=== PATIENT | female | born 1995 | race Caucasian/White ===

== ENCOUNTER 2020-05-05 13:07 | Emergency (ER) | payer OTHER, SELFPAY ==
--- NOTE | ~2020-05-05 | XR_ITS ---
EXAMINATION: XR elbow RT min 3V DATE: 05/05/2020 13:29 INDICATION: Right elbow injury. TECHNIQUE: 4 views of right elbow were obtained. COMPARISON: None. FINDINGS: Bone alignment is normal. There is a nondisplaced fracture of radial head. Joint spaces are normal. There is an elbow joint effusion. IMPRESSION: 1. Nondisplaced fracture of radial head. 2. Elbow joint effusion. Reviewed, dictated and finalized at location B.
[2020-05-05 13:19] VITALS: BP 147/89; PULSE 69; RESP 20; TEMP 36.9; O2SAT 100
--- NOTE | 2020-05-05 13:22 | ED.UPPEXIN ---
HPI - Extremity Injury (Upper) General Chief Complaint: Extremity Injury, Upper Stated Complaint: R/elbow pain Time Seen by Provider: 05/05/20 13:14 Source: patient Mode of arrival: ambulatory Limitations: no limitations History of Present Illness HPI narrative: 25-year-old female presents to urgent care with complaints of pain and swelling to right elbow for the past 3 days. Patient ports that she was hiking in [place] when she slipped falling on a rock on her right elbow. Patient reports pain and swelling to her right elbow since. Patient denies bruising, numbness or tingling. Patient has been applying ice and taking [id number] pain medications with little relief. Patient denies previous injury to her elbow. Patient denies hitting her head or loss of consciousness MD complaint: injury to: right Onset (ago): day(s) (3) Other Extremity Injury: Right: elbow Other injuries: none Place: outdoors Relieving factors: none Exacerbating factors: movement of extremity Context: fall Associated symptoms: denies other symptoms Treatments prior to arrival: cold therapy and NSAIDS Related Data Allergies Allergy/AdvReac Type Severity Reaction Status Date / Time hydrocodone Allergy Vomiting Verified 05/05/20 13:25 red dye Allergy Rash Verified 05/05/20 13:23 Review of Systems Constitutional: Constitutional: Denies chills, Denies fatigue, Denies fever(s) and Denies weakness ENT: Denies vertigo and Denies dizziness Cardiovascular: Cardiovascular: Denies chest pain, Denies rapid heart rate, Denies radiating jaw, neck or arm pain and Denies slow heart rate Respiratory: Respiratory: Denies cough and Denies dyspnea Gastrointestinal: Gastrointestinal: Denies abdominal pain, Denies diarrhea, Denies nausea and Denies vomiting Musculoskeletal: Musculoskeletal: Reports as per HPI Comments: right elbow pain and swelling Integumentary/Breasts: Skin/Breast: Denies pruritus, Denies erythema, Denies rash and Denies skin ulcer Neurologic: Denies vertigo, Denies focal weakness and Denies weakness PMFSH Social History Social History (Updated 05/05/20 @ 13:25 by Юлия Nieves APRN) Smoking status: Never smoker Gender identity (if verbalized by the patient): Female Exam Const: General: healthy appearing, no acute distress and alert Nutritional Appearance: well nourished Orientation/consciousness: patient oriented x3 Neck: Neck: normal visual inspection Resp: Effort & Inspection: normal respiratory effort, not labored and not tachypneic Auscultation: clear to auscultation bilaterally, no crackles and no wheezes Cardio: Rate: regular rate, not bradycardic and not tachycardic Rhythm: regular rhythm Skin: General skin exam: normal color, no jaundice and no pallor Rashes: no rashes Wounds: no wounds noted Neuro: General: patient oriented x3, moves all extremities and CN's II-XI intact bilaterally Extrem: General: no clubbing, cyanosis or edema Other: Pain noted to lateral aspect of right elbow upon palpation. There is mild swelling noted to lateral aspect of right elbow. There is no bruising or decreased range of motion noted. Patient does have increased pain upon range of motion. Psych: Appearance: grossly normal Mental Status: mental status grossly normal Affect: normal affect Attitude: cooperative Thought content: Yes Normal thought content present Course Vital Signs Vital signs: Vital Signs Temperature 36.9 C 05/05/20 13:19 Pulse Rate 69 05/05/20 13:19 Respiratory Rate 05/05/20 13:19 Blood Pressure 147/89 H 05/05/20 13:19 Pulse Oximetry 100 05/05/20 13:19 Temperature 36.9 C 05/05/20 13:19 Pulse Rate 05/05/20 13:19 Respiratory Rate 05/05/20 13:19 Blood Pressure 147/89 H 05/05/20 13:19 Pulse Oximetry 100 05/05/20 13:19 MDM - Extremity Injury (Upper) MDM Narrative Medical decision making narrative: right elbow xray results --fracture right radial head discussed
== END 2020-05-05 14:25 | disposition home or self-care (01) ==
PROVIDERS: Emergency Provider Nurse Practitioner Family
DX: S52.124A Nondisplaced fracture of head of right radius, initial encounter for closed fracture (principal); W01.198A Fall on same level from slipping, tripping and stumbling with subsequent striking against other object, initial encounter
CPT/HCPCS: 29105; 73080; 99204; A4565; G0463

== ENCOUNTER 2020-09-11 10:38 | Emergency (ER) | payer OTHER, SELFPAY ==
[2020-09-11 11:07] VITALS: BP 146/93; PULSE 81; RESP 16; TEMP 36.6; O2SAT 100
--- NOTE | 2020-09-11 11:10 | ED.GENADULT ---
HPI - General Adult General Chief complaint: Urogenital-Female Stated complaint: exposure to std Time Seen by Provider: 09/11/20 11:20 Source: patient and RN notes reviewed Mode of arrival: ambulatory Limitations: no limitations History of Present Illness HPI narrative: 25-year-old female who presents to [facility] care with complaints of 3 day duration of yellowish to green vaginal drainage noted. Patient states that she has had 2 sexual partners in the past 2 weeks and does not always use condoms. Patient states that she is not on control but did take a test at home 3 days ago that was negative, states that last menses 20 days ago. Patient denies any burning or pain with urination, no urinary frequency or urgency.denies any abdominal pain or suprapubic pressure.Patient states that a week ago she thought she had a yeast infection so she took Diflucan tablet with those symptoms resolving prior to yellowish drainage starting. MD complaint: possible STD Onset (ago): day(s) (3) Quality: other Relieving factors: none Treatments prior to arrival: none Related Data Home Medications Medication Instructions Recorded Confirmed No Home Medications 09/11/20 09/11/20 Allergies Allergy/AdvReac Type Severity Reaction Status Date / Time hydrocodone Allergy Unknown Verified 08/08/17 13:33 red dye Allergy Unknown Verified 08/08/17 13:33 Review of Systems Review of Systems: Narrative: CONSTITUTIONAL: Denies fever, chills, or sweats. EYES: Denies visual changes, redness, or discharge. ENT: Denies rhinorrhea, congestion, sore throat, or otalgia. CARDIOVASCULAR: Denies chest pain, palpitations, or edema. RESPIRATORY: Denies cough or dyspnea. GASTROINTESTINAL: Denies abdominal pain, nausea, vomiting, or diarrhea. GENITOURINARY: Denies dysuria or hematuria.positive for intermittent yellow to greenish colored discharge for the past 3 days, no odor or itching. SKIN: Denies rash or itching. MUSCULOSKELETAL: Denies back pain, joint pain, or myalgia. NEUROLOGIC: Denies headache, numbness, or weakness. PSYCHIATRIC: Denies anxiety or depression. All systems reviewed & are unremarkable except as noted in HPI and below PMFSH Past Medical History Medical History (Updated 09/11/20 @ 12:30 by Nichole Earl NP) No significant past medical history Surgical History Surgical History (Updated 09/11/20 @ 12:30 by Nichole Earl NP) Hx of tonsillectomy Family History Family History (Updated 09/11/20 @ 12:31 by Nichole Earl NP) Grandparent Hypertension Heart disease Social History Social History (Updated 09/11/20 @ 12:30 by Nichole Earl NP) Smoking status: Never smoker Alcohol intake: current Substance use: never Living arrangements: with family Gender identity (if verbalized by the patient): Female Comments At time of signature, agree with nursing past medical, surgical, social and family history. There is no relevant family history pertinent to the presenting complaint Exam Narrative: Exam Narrative: GENERAL: Well-appearing, well-nourished, and in no acute distress. HEAD: Normocephalic, atraumatic. EYES: PERRLA and EOMI. ENT: Nares clear, no rhinorrhea or epistaxis. Mucous membranes moist. NECK: Supple.no lymphadenopathy CHEST: Clear to auscultation. No respiratory distress.SAO2 100% on room air HEART: Regular rate and rhythm. No murmur heard. Normal peripheral pulses. ABDOMEN: Soft, nontender, nondistended, normal active bowel sounds.no abdominal or suprapubic discomfort, denies any vaginal pain positive for vaginal discharge yellow to green with no odor or itching. EXTREMITIES: Normal range of motion. No edema. SKIN: Warm, dry, no rash. NEURO: No focal deficits. Alert and oriented x3. Course Vital Signs Vital signs: Vital Signs Temperature 36.6 C 09/11/20 11:07 Pulse Rate 81 09/11/20 11:07 Respiratory Rate 16 09/11/20 11:07 Blood Pressure 146/93 H 09/11/20 11:07 Pulse Ox
[2020-09-11] MEDS: LIDOCAINE HCL 1% LOCAL INJ 20 ML VIAL IM (11:52)
[2020-09-11] MEDS: cefTRIAXone 250 MG VIAL IM (11:52)
[2020-09-11] MEDS: metroNIDAZOLE 250 MG TABLET 2000 MG PO (12:04)
[2020-09-11] MEDS: AZITHROMYCIN 250 MG TABLET 1000 MG PO (12:16)
== END 2020-09-11 12:24 | disposition home or self-care (01) ==
PROVIDERS: Emergency Provider Registered Nurse
DX: A64 Unspecified sexually transmitted disease (principal)
CPT/HCPCS: 81003; 87491; 87591; 87661; 96372; 99203; A9270; G0463; J0696

== ENCOUNTER 2021-06-06 10:30 | Emergency (ER) | payer OTHER, SELFPAY ==
[2021-06-06 10:49] VITALS: BP 140/93; PULSE 107; RESP 18; TEMP 36.6; O2SAT 98
[2021-06-06 11:04] VITALS: BP 140/93; PULSE 107; RESP 18; TEMP 36.6; O2SAT 98
--- NOTE | 2021-06-06 11:19 | ED.URI ---
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 Patient notes associated chills, and sneezing; no fever, rash, diarrhea. Patient reports after her first vaccination she had Covid and her second vaccine was this week with negative PCR testing; no loss of taste/smell, CP, rash, S OB Related Data Allergies Allergy/AdvReac Type Severity Reaction Status Date / Time hydrocodone Allergy Intermediate Vomiting Verified 06/06/21 12:59 red dye Allergy Intermediate Hives Verified 06/06/21 12:59 Review of Systems Review of Systems: The patient has been informed that they may have pre-hypertension or Hypertension based on a BP reading in the department. I recommend that the patient call the primary care provider listed on their discharge instructions or a physician of their choice this week to arrange follow up for further evaluation of possible pre-hypertension or Hypertension General/Constitutional: No weight loss,fever Eyes: N0: Redness,discharge Ears/Nose/Throat: No: Epistaxis,ear discharge Respiratory: Denies: Hemoptysis Gastrointestinal: No Vomiting, Bleeding-rectal Skin: No Lumps, eruption Neurologic: No Focal Weakness,Sz Hematologic: Denies: Petechiae/Purpura Psychiatric: No: Suicida ideationl All Other Systems: Reviewed and Negative PMFSH Social History Social History (Updated 05/05/20 @ 13:25 by Юлия Nieves APRN) Smoking status: Never smoker Gender identity (if verbalized by the patient): Female Comments At time of signature, agree with nursing past medical, surgical, social and family history. There is no relevant family history pertinent to the presenting complaint Exam Narrative: General Appearance: Overweight/well nourished,, Conjunctiva clear Ears: Auditory canal normal, TM normal Nose: Rhinorrhea, Mucousal erythema Mouth/Throat: MM moist, Uvula midline, Pharyngeal erythema Neck: Supple, No adenopathy Respiratory: No respiratory distress, Breath sounds equal, Clear to auscultation Cardiovascular: RRR, No JVD Musculoskeletal: Non tender, Normal strength Skin: Warm, Dry Neurological: A&O x3, Normal affect Course Vital Signs Vital signs: Vital Signs Temperature 97.9 F 06/06/21 10:49 Pulse Rate 107 H 06/06/21 10:49 Respiratory Rate 18 06/06/21 10:49 Blood Pressure 140/93 H 06/06/21 10:49 Pulse Oximetry 98 06/06/21 10:49 Temperature 97.9 F 06/06/21 11:04 Pulse Rate 107 H 06/06/21 11:04 Respiratory Rate 18 06/06/21 11:04 Blood Pressure 140/93 H 06/06/21 11:04 Pulse Oximetry 98 06/06/21 11:04 MDM - URI/Sore Throat Lab Data Labs: Lab Results 06/06/21 Range/Units 11:30 POC SARS CoV-2 Ag Negative (Negative) Discharge Plan Discharge Clinical Impression: Cough Patient Disposition: Home, Self-Care Condition: Stable Instructions: Acute Bronchitis (ED) Prescriptions: New azithromycin 250 mg tablet See Rx Instructions .ROUTE .COMPLEX Qty: 6 RF: 0 codeine-guaifenesin 10-100 mg/5 mL liquid 7.5 ml PO Q6H PRN (Reason: cough) Qty: 118 RF: 0 azelastine 137 mcg (0.1 %) aerosol,spray 137 mcg NASAL Q12H Qty: 30 RF: 0 benzonatate [Tessalon Perles] 100 mg capsule 100 mg PO TID Qty: 20 RF: 1 Other Ambulatory Orders: SARS-CoV-2 RNA, Qual RT-PCR (Routine) Location: Determined by Patient Ordered By: Ethan Roberson Follow-up/Referrals: PHYSICIAN,DIE CASTER [Primary Care Provider] - Stand Alone Forms: Work/School Release IP
== END 2021-06-06 11:45 | disposition home or self-care (01) ==
PROVIDERS: Emergency Provider Emergency Medicine
DX: R05 Cough (principal); Z20.822 Contact with and (suspected) exposure to COVID-19
CPT/HCPCS: 87426; 99213; C9803; G0463

== ENCOUNTER → 2021-06-08 08:11 | Outpatient (CLI) | payer OTHER, SELFPAY ==
[2021-06-08 17:28] LABS: SARS-CoV-2 RNA PCR Negative
== END ==
PROVIDERS: Visit Provider Emergency Medicine
DX: J40 Bronchitis, not specified as acute or chronic (principal); Z20.822 Contact with and (suspected) exposure to COVID-19
CPT/HCPCS: C9803; U0003; U0005

== ENCOUNTER 2021-12-03 17:56 | Emergency (ER) | payer OTHER, SELFPAY ==
[2021-12-03 18:10] VITALS: BP 141/95; PULSE 82; RESP 18; TEMP 36.7; O2SAT 99
--- NOTE | 2021-12-03 18:18 | ED.URI ---
HPI - URI/Sore Throat General Chief Complaint: Upper Respiratory Infection Stated Complaint: cold/flu symptoms and lymph nodes are swollen Time Seen by Provider: 12/03/21 18:15 Source: patient Mode of arrival: ambulatory Limitations: no limitations History of Present Illness HPI Narrative: Elisha Hickey is a 26 yo female with PMH of hypertension and depression, [facility] of [facility] symptoms, swollen lymph nodes, low-grade fever for 2 days. No nausea vomiting diarrhea, no complaints of difficulty with swallowing Related Data Home Medications Medication Instructions Recorded Confirmed amlodipine [Norvasc] 5 mg PO DAILY 12/03/21 12/03/21 duloxetine [Cymbalta] 20 mg PO DAILY 12/03/21 12/03/21 Allergies Allergy/AdvReac Type Severity Reaction Status Date / Time hydrocodone Allergy Unknown Verified 12/03/21 18:16 red dye Allergy Unknown Verified 12/03/21 18:16 Review of Systems Review of Systems: CONSTITUTIONAL: has fever, chills, sweats. EYES: Denies visual changes, redness, discharge. ENT: Denies rhinorrhea, has congestion, normal sore throat, otalgia. Swollen bilateral lymph nodes CARDIOVASCULAR: Denies chest pain, palpitations, edema. RESPIRATORY: Denies dyspnea, wheezing, cough GASTROINTESTINAL: Denies abdominal pain, nausea, vomiting, diarrhea. GENITOURINARY: Denies dysuria, hematuria, abnormal discharge SKIN: Denies rash or itching. NEUROLOGIC: Denies numbness, or focal weakness. PSYCHIATRIC: Denies anxiety or depression. [facility] Past Medical History Medical History Depression Hypertension Surgical History Surgical History Hx of tonsillectomy Family History Family History Grandparent Hypertension Heart disease Social History Social History Smoking status: Never smoker Alcohol intake: current Substance use: never Gender identity (if verbalized by the patient): Female Comments At time of signature, I agree with nursing past medical, surgical, social and family history. There is no relevant family history pertinent to the presenting complaint. Exam Narrative: GENERAL: This is a well-nourished, well-developed patient, in mild distress. HEAD: normocephalic, atraumatic. EYES:. Sclera clear/white. Vision is grossly intact. EARS: External ears normal, auditory canals erythema and without drainage, TM bulging on left. Hearing grossly intact. NOSE: External nose normal with nasal discharge, nares without redness, no rhinorrhea. THROAT: Mucous membranes moist, posterior pharynx mild erythema but has enlarged submandibular lymph nodes bilaterally NECK: Neck supple, mild tender CARDIOVASCULAR: Regular rate and rhythm without murmurs, gallops, or rubs. RESPIRATORY: Clear to auscultation. Breath sounds equal bilaterally. No wheezes, rales, or rhonchi. GASTROINTESTINAL: Not done SKIN: warm, intact with no suspicious lesions or rash, good texture and turgor. NEURO: awake, alert, and oriented to person, place and time. There were no obvious focal neurologic abnormalities. Steady gait EXTREMITIES: Normal range of motion. BACK: Nontender without deformity Course Course Emergency Course: Comes with mild fever bilateral enlarged lymph nodes mild sore throat some nasal drainage but feeling tired and having a low-grade fever x2 days; she has no posterior lymph node tenderness Flu is negative Treat with amoxicillin for adenitis to take Tylenol or ibuprofen for pain or fever Level of Care: Express Care Visit Vital Signs Vital signs: Vital Signs Temperature 98.0 F 12/03/21 18:10 Pulse Rate 82 12/03/21 18:10 Respiratory Rate 18 12/03/21 18:10 Blood Pressure 141/95 H 12/03/21 18:10 Pulse Oximetry 99 12/03/21 18:10 Temperature 98.0 F 12/03
== END 2021-12-03 18:39 | disposition home or self-care (01) ==
PROVIDERS: Emergency Provider Nurse Practitioner
DX: L04.0 Acute lymphadenitis of face, head and neck (principal); I10 Essential (primary) hypertension; F32.A Depression, unspecified
CPT/HCPCS: 87804; 99213; G0463

== ENCOUNTER 2022-05-18 10:04 | Emergency (ER) | payer OTHER, SELFPAY ==
--- NOTE | 2022-05-18 10:14 | ED.URI ---
HPI - URI/Sore Throat General Chief Complaint: Upper Respiratory Infection Stated Complaint: Sore Throat Time Seen by Provider: 05/18/22 10:14 Source: patient, RN notes reviewed and old records reviewed Mode of arrival: ambulatory Limitations: no limitations History of Present Illness HPI Narrative: 27-year-old female presents to the [facility] with complaints of a sore throat and ear fullness since Tuesday. Has been using Flonase and Claritin. Took some Sudafed today. States she took an at home COVID test which she states is negative. Has no concern for COVID or flu, is vaccinated MD elicited complaint: sore throat Related Data Home Medications Medication Instructions Recorded Confirmed amlodipine 5 mg tablet (Norvasc) 5 mg PO DAILY 12/03/21 05/18/22 duloxetine 20 mg capsule,delayed 20 mg PO DAILY 12/03/21 05/18/22 release (Cymbalta) levothyroxine 100 mcg tablet 100 mcg DAILY 05/18/22 05/18/22 (Synthroid) norethindrone (contraceptive) 0.35 0.35 mg DAILY 05/18/22 05/18/22 mg tablet Allergies Allergy/AdvReac Type Severity Reaction Status Date / Time hydrocodone Allergy Unknown Vomiting Verified 05/18/22 10:22 red dye Allergy Unknown Hives Verified 05/18/22 10:22 Review of Systems Review of Systems: All systems reviewed & are unremarkable except as noted in HPI and below Constitutional: Constitutional: Reports no additional constitutional complaints, Denies chills and Denies fever(s) Eyes: Eyes: Reports no additional eye complaints ENT: Reports as per HPI, Reports otalgia and Reports sore throat Cardiovascular: Cardiovascular: Reports no additional cardiovascular complaints Respiratory: Respiratory: Reports no additional respiratory complaints Gastrointestinal: Gastrointestinal: Reports no additional gastrointestinal complaints Musculoskeletal: Musculoskeletal: Reports no additional musculoskeletal complaints Integumentary/Breasts: Skin/Breast: Reports system reviewed and no additional complaints, except as docu Neurologic: Reports system reviewed and no additional complaints, except as documented Psychiatric: Psychiatric: Reports no additional psychiatric complaints Allergic/Immunologic: Allergic/Immunologic: Reports no additional allergic/immunologic complaints PMFSH Past Medical History Medical History Depression Hypertension Surgical History Surgical History Hx of tonsillectomy Family History Family History Grandparent Hypertension Heart disease Social History Social History Smoking status: Never smoker Alcohol intake: current Substance use: never Gender identity (if verbalized by the patient): Female Comments At the time of my signature, I reviewed and agree with the nursing past medical, surgical, social, and family history. There is no relevant family history pertinent to the patient complaint. Exam Const: General: healthy appearing, no acute distress and alert Nutritional Appearance: well nourished and obese Orientation/consciousness: patient oriented x3 Limitations: no limitations HENMT: Head: normal to inspection Ears: external ears normal, EAC's normal, mastoids normal, no periauricular adenopathy and TM abnormal bulging bilateral and with fluid behind the TM bilateral; not erythematous and with no loss of landmarks General nose exam: Normal external nose present and Normal nares present Face and sinus: normal facial exam, sinuses nontender and face symmetric Mouth: Yes Normal oral and palatal mucosa present, Yes lip normal and Yes tongue normal Teeth and gingiva: dentition normal and gingiva normal Throat: uvula midline, posterior oropharynx abnormal cobblestoning; no edema, no erythema and no exudates, postnasal drainage and tonsils absent Eye
[2022-05-18 10:15] VITALS: BP 134/89; PULSE 84; RESP 16; TEMP 36.4; O2SAT 100
== END 2022-05-18 10:32 | disposition home or self-care (01) ==
PROVIDERS: Emergency Provider Nurse Practitioner
DX: J06.9 Acute upper respiratory infection, unspecified (principal); R09.82 Postnasal drip; I10 Essential (primary) hypertension; F32.A Depression, unspecified
CPT/HCPCS: 87081; 99213; G0463

== ENCOUNTER 2023-03-16 19:07 | Emergency (ER) | payer OTHER, SELFPAY ==
[2023-03-16 19:31] VITALS: BP 143/102; PULSE 76; RESP 16; TEMP 36.1; O2SAT 100
--- NOTE | 2023-03-16 19:50 | ED.FEMALEGU ---
HPI - Female Genitourinary General Chief complaint: Urogenital-Female Stated complaint: Female Urogenital Time Seen by Provider: 03/16/23 19:50 Source: patient and RN notes reviewed Mode of arrival: ambulatory Limitations: no limitations History of Present Illness HPI Narrative: 27-year-old female presented for complaint of burning with urination, frequency, urgency and lower abdominal pressure since yesterday. Endorses this morning small amount of blood in urine. She denies nausea, vomiting, diarrhea, flank pain, fevers or chills. She is taking ibuprofen for symptoms. LMP one week ago. Denies concern for STD. Related Data Home Medications Medication Instructions Recorded Confirmed amlodipine 5 mg tablet (Norvasc) 5 mg PO DAILY 12/03/21 03/16/23 levothyroxine 100 mcg tablet 100 mcg DAILY 05/18/22 03/16/23 (Synthroid) hydrochlorothiazide 12.5 mg capsule 12.5 mg PO DAILY 03/16/23 03/16/23 phentermine 30 mg capsule 30 mg PO DAILY 03/16/23 03/16/23 Allergies Allergy/AdvReac Type Severity Reaction Status Date / Time hydrocodone AdvReac Intermediate Vomiting Verified 03/16/23 19:28 red dye AdvReac Mild Hives Verified 03/16/23 19:28 Review of Systems Review of Systems: CONSTITUTIONAL: Denies body aches, fever, chills, or sweats. CARDIOVASCULAR: Denies chest pain, palpitations, or edema. RESPIRATORY: Denies cough or dyspnea. GASTROINTESTINAL: Denies abdominal pain, nausea, vomiting, or diarrhea. GENITOURINARY: Reports dysuria, frequency, urgency, hematuria denies flank pain SKIN: Denies rash, itching, or wounds. MUSCULOSKELETAL: Denies back pain or myalgia. [facility] Past Medical History Medical History Depression Hypertension Surgical History Surgical History Hx of tonsillectomy Family History Family History Grandparent Hypertension Heart disease Social History Social History Smoking status: Never smoker Alcohol intake: current Substance use: never Living arrangements: with family Gender identity (if verbalized by the patient): Female Comments At time of signature, I have reviewed and agree with nursing past medical, surgical, social and family history unless otherwise noted. Please see nursing chart for further information. There is no relevant family history pertinent to the presenting complaint Exam Narrative: GENERAL: Well-appearing and in no acute distress. HEAD: Normocephalic EYES: EOMI. . ENT: Mucous membranes pink and moist. NECK: Normal AROM. Supple. CHEST: No respiratory distress. Clear to auscultation. HEART: Regular rate and rhythm. ABDOMEN: Soft, nontender, nondistended, normal active bowel sounds. No CVA tenderness MUSCULOSKELETAL: No bony tenderness. SKIN: Warm, dry, no rash. NEURO: No focal deficits. Alert and oriented x3. Gait steady. PSYCH: Normal affect. Course Course Emergency Course: Patient is aware of diagnosis, understands and agrees to treatment plan. Anticipatory guidance given. Patient agrees to follow-up as directed and is aware of reasons to seek care at the emergency department. Portions of this record may have been created with voice recognition software Level of Care: Express Care Visit Vital Signs Vital signs: Vital Signs Temperature 97.0 F L 03/16/23 19:31 Pulse Rate 76 03/16/23 19:31 Respiratory Rate 16 03/16/23 19:31 Blood Pressure 143/102 H 03/16/23 19:31 Pulse Oximetry 100 03/16/23 19:31 Oxygen Delivery Room Air 03/16/23 19:31 Temperature 97.0 F L 03/16/23 19:31 Pulse Rate 76 03/16/23 19:31 Respiratory Rate 16 03/16/23 19:31 Blood Pressure 143/102 H 03/16/23 19:31 Pulse Oximetry 100 03/16/23 19:31 Oxygen Delivery Room Air 03/16/23 19:31 Reviewed
== END 2023-03-16 19:58 | disposition home or self-care (01) ==
PROVIDERS: Emergency Provider Nurse Practitioner Family
DX: N39.0 Urinary tract infection, site not specified (principal); I10 Essential (primary) hypertension
CPT/HCPCS: 81003; 87086; 87088; 99213; G0463

== ENCOUNTER 2023-05-06 19:07 | Emergency (ER) | payer OTHER, SELFPAY ==
--- NOTE | 2023-05-06 19:13 | ED.URI ---
HPI - URI/Sore Throat General Chief Complaint: Upper Respiratory Infection Stated Complaint: Sore Throat,Bilateral Ear Irritation Time Seen by Provider: 05/06/23 19:13 Source: patient, RN notes reviewed and old records reviewed Mode of arrival: ambulatory Limitations: no limitations History of Present Illness HPI Narrative: 28-year-old female presents to the [facility] with complaints of sore throat that started 2 days ago, ear pain started yesterday. Has taken Tylenol, Motrin, Benadryl Related Data Home Medications Medication Instructions Recorded Confirmed amlodipine 5 mg tablet (Norvasc) 5 mg PO DAILY 12/03/21 05/06/23 levothyroxine 100 mcg tablet 100 mcg DAILY 05/18/22 05/06/23 (Synthroid) hydrochlorothiazide 12.5 mg capsule 12.5 mg PO DAILY 03/16/23 05/06/23 phentermine 30 mg capsule 30 mg PO DAILY 03/16/23 05/06/23 Allergies Allergy/AdvReac Type Severity Reaction Status Date / Time hydrocodone AdvReac Intermediate Vomiting Verified 05/06/23 19:12 red dye AdvReac Mild Hives Verified 05/06/23 19:12 Review of Systems Review of Systems: All systems reviewed & are unremarkable except as noted in HPI and below Constitutional: Constitutional: Reports no additional constitutional complaints Eyes: Eyes: Reports no additional eye complaints ENT: Reports as per HPI, Reports otalgia and Reports sore throat Cardiovascular: Cardiovascular: Reports no additional cardiovascular complaints, Denies chest pain and Denies dyspnea Respiratory: Respiratory: Reports no additional respiratory complaints, Denies chest congestion, Denies cough and Denies dyspnea Gastrointestinal: Gastrointestinal: Reports no additional gastrointestinal complaints, Denies abdominal pain, Denies nausea and Denies vomiting Musculoskeletal: Musculoskeletal: Reports no additional musculoskeletal complaints Integumentary/Breasts: Skin/Breast: Reports system reviewed and no additional complaints, except as docu Neurologic: Reports system reviewed and no additional complaints, except as documented Psychiatric: Psychiatric: Reports no additional psychiatric complaints Allergic/Immunologic: Allergic/Immunologic: Reports no additional allergic/immunologic complaints PMFSH Past Medical History Medical History Depression Hypertension Surgical History Surgical History Hx of tonsillectomy Family History Family History Grandparent Hypertension Heart disease Social History Social History Smoking status: Never smoker Alcohol intake: current Substance use: never Living arrangements: with family Gender identity (if verbalized by the patient): Female Comments At the time of my signature, I reviewed and agree with the nursing past medical, surgical, social, and family history. There is no relevant family history pertinent to the patient complaint. Exam Const: General: cooperative, healthy appearing, comfortable, no acute distress, well developed, alert and well nourished Nutritional Appearance: well nourished and obese Orientation/consciousness: patient oriented x3 Limitations: no limitations HENMT: Head: normal to inspection Ears: hearing grossly normal bilaterally, external ears normal, TM's normal bilaterally, mastoids normal and Abnormal EAC present erythema on the right (With abrasions) Face/Nose/Sinus: Normal external nose present, Normal nares present, Normal nasal mucous membranes and turbinates present and normal facial exam Face and sinus: normal facial exam Mouth: Yes Normal oral and palatal mucosa present, Yes lip normal and Yes moist mucous membranes Throat: uvula midline, posterior oropharynx abnormal (Postnasal drip) cobblestoning and tonsils absent Eyes: General: appearance normal, both eyes and all r
[2023-05-06 19:20] VITALS: BP 140/92; PULSE 82; RESP 18; TEMP 36.2; O2SAT 100
== END 2023-05-06 19:44 | disposition home or self-care (01) ==
PROVIDERS: Emergency Provider Nurse Practitioner
DX: H93.8X1 Other specified disorders of right ear (principal); J02.9 Acute pharyngitis, unspecified; I10 Essential (primary) hypertension; Z20.822 Contact with and (suspected) exposure to COVID-19
CPT/HCPCS: 87081; 87426; 87880; 99213; C9803; G0463

== ENCOUNTER 2023-08-24 11:19 | Emergency (ER) | payer OTHER, SELFPAY ==
--- NOTE | ~2023-08-24 | XR_ITS ---
EXAMINATION: XR chest 2V DATE: 08/24/2023 12:08 INDICATION: Chest pain. Shortness of breath. TECHNIQUE: Frontal and lateral views of the chest were obtained. COMPARISON: CT abdomen and pelvis 04/19/2018 FINDINGS: There is no pneumonia, pleural effusion, or pneumothorax. The heart size is normal. There i s mild chronic anterior wedging of multiple vertebral bodies. IMPRESSION: 1. No acute cardiopulmonary disease. Reviewed, dictated and finalized at location [facility]
--- NOTE | 2023-08-24 11:30 | ED.URI ---
HPI - URI/Sore Throat General Chief Complaint: Upper Respiratory Infection Stated Complaint: COUGH/CHEST PAIN/LUNG PAIN Time Seen by Provider: 08/24/23 11:43 Source: patient Mode of arrival: ambulatory Limitations: no limitations History of Present Illness HPI Narrative: Ally is a 28-year-old female patient presenting to the clinic today with complaints of cough, chest discomfort, shortness of breath, and lung pain with inspiration. She reports she had cold-like symptoms for 2 weeks and 1 week ago her symptoms change and she has developed chest discomfort and lung pain with inspiration as well as a productive cough. Reports she was bringing up some green and yellow phlegm. Had a tele health visit with her primary care doctor and she was prescribed Tessalon Perles, Augmentin, and albuterol inhaler. States that although her sputum has changed in color she is still having difficulty with shortness of breath and lung pain. Is requesting further evaluation in the clinic today. MD elicited complaint: cough, nasal congestion, sinus pain and other (Shortness of breath, chest discomfort) Related Data Home Medications Medication Instructions Recorded Confirmed amlodipine 5 mg tablet (Norvasc) 5 mg PO DAILY 12/03/21 08/24/23 levothyroxine 100 mcg tablet 100 mcg DAILY 05/18/22 08/24/23 (Synthroid) hydrochlorothiazide 12.5 mg capsule 12.5 mg PO DAILY 03/16/23 08/24/23 phentermine 30 mg capsule 30 mg PO DAILY 03/16/23 08/24/23 Allergies Allergy/AdvReac Type Severity Reaction Status Date / Time hydrocodone AdvReac Intermediate Vomiting Verified 08/24/23 12:06 red dye AdvReac Mild Hives Verified 08/24/23 12:06 Review of Systems Review of Systems: Pertinent positives per HPI. Patient denies any fever, chills, rash, headache, visual changes, dizziness,palpitations, nausea, vomiting, diarrhea, constipation, abdominal pain, or any urinary issues. PMFSH Past Medical History Medical History Depression Hypertension Surgical History Surgical History Hx of tonsillectomy Family History Family History Grandparent Hypertension Heart disease Social History Social History Smoking status: Never smoker Alcohol intake: current Substance use: never Living arrangements: with family Gender identity (if verbalized by the patient): Female Comments At the time of my signature, I reviewed and agree with the nursing past medical, surgical, social, and family history. There is no relevant family history pertinent to the patient complaint. Exam Narrative: General: Well-developed, obese, in no apparent distress Head: Normocephalic, atraumatic Eyes: Pupils equally round and reactive to light bilaterally, EOM intact, sclera and conjunctive clear, no discharge, lids normal Ears: TMs intact and congested, ear canals clear, no drainage, grossly hearing normal. Nose: Nares patent, clear nasal discharge, moderate inflammation, maxillary and frontal sinus tenderness. Mouth: Oral pharynx without lesions or masses, good dentition, MMM. Neck: Supple, trachea midline, no enlargement of anterior or posterior cervical nodes, no thyroid masses or goiter palpable. Cardio: Regular rate and rhythm, s1 and s2 normal, no murmur appreciated. Resp: Clear to auscultation bilaterally, no rhonchi, rales, wheezing or rubs Course Course Emergency Course: Portions of this record may have been created with voice recognition software. Level of Care: Express Care Visit Vital Signs Vital signs: Vital Signs Oxygen Delivery Room Air 08/24/23 11:50 Temperature 36.4 C 08/24/23 11:51 Pulse Rate 89 08/24/23 11:51 Respiratory Rate 16 08/24/23 11:51 Blood Pressure 138/96 H 08/24/23 11:51 Pul
[2023-08-24 11:51] VITALS: BP 138/96; PULSE 89; RESP 16; TEMP 36.4; O2SAT 100
== END 2023-08-24 12:30 | disposition home or self-care (01) ==
PROVIDERS: Emergency Provider Nurse Practitioner Family
DX: J01.90 Acute sinusitis, unspecified (principal); J40 Bronchitis, not specified as acute or chronic; I10 Essential (primary) hypertension
CPT/HCPCS: 71046; 99213; G0463